=== PATIENT | male | born 1945 | race Caucasian/White ===

== ENCOUNTER 2018-01-20 06:00 | Inpatient (IN) | payer MEDICARE, OTHER ==
--- NOTE | 2018-01-06 16:40 | NUR ---
PATIENT HERE TODAY FOR PREADMISSION APPOINTMENT. PATIENT IS SCHEDULET TO HAVE A RIGHT TOTAL KNEE ARTHROPLASTY ON 01/20/18. PATIENT STATES HE WAS CONTACTED BY PHYSICAL THERAPY HERE IN [place] AND IS NOT GOING TO ATTEND A PREOP PHYSICAL THERAPY APPOINTMENT. HE LIVES IN [place] AND WOULD LIKE TO HAVE PHYSICAL THERAPY AFTER SURGERY AT [facility]. PATIENT STATES HE HAS A WALKER AT HOME BUT SEE'S NO POINT IN USING IT. I DISCUSSED SAFETY WITH HIM AFTER HIS PROCEDURE HE VERBALIZED UNDERSTANDING WHILE STILL TELLING ME HE WOULD USED HIS CRUTCHES DUE TO THE WALKER HURTING HIS BACK. HE STATES HE HAS TWO STAIRS INTO HIS HOME WITH NO HANDRAIL. PATIENT WAS NOT INTERESTING IN TALKING ABOUT HIS TUB OR SHOWER IN HIS HOME OR ITEMS HE MAY NEED FOR AFTER SURGERY. PATIENT STATES HE WOULD LIKE TO GO TO [facility] FOR SWING BED AFTER SURGERY BECAUSE NO ONE IN TOWN WILL CHECK ON HIM AND HE DOES NOT HAVE ANYONE AT HOME WITH HIM. THIS INFORMATION WILL BE SENT TO DR KEYUR MACHADO AND [facility] FOR FURTHER FOLLOW UP.
[~2018-01-20] VITALS: Ht 162.6 cm; Wt 78.5 kg
[~2018-01-20 06:00] MED LIST: ADVIL200 MG; CALCIUM600 MG PO; FISH OIL 1,0001 EAC2 NG; GABAPENTIN400 MG PO; GABAPENTIN600 MG PO; MULTIVITAMINS1 EAC8 PO; ULTRAM50 MG PO; VITAMIN B-121000 MCG PO; VITAMIN C500 M4 PO; ZESTRIL10 MG PO
--- NOTE | 2018-01-20 10:20 | OR ---
[facility] [address] [place], [place] [address] Signed DATE OF OPERATION: 01/20/2018 SURGEON: Juliane Cannon MD PREOPERATIVE DIAGNOSIS: Severe degenerative joint disease, right knee. POSTOPERATIVE DIAGNOSIS: Severe degenerative joint disease, right knee. PROCEDURE PERFORMED: Right total knee arthroplasty with computer navigation. VEGETABLE HARVEST MACHINE OPERATOR: Mirian Gale PA-C. Mirian was present in critical positioning, retraction, and wound closure. ANESTHESIA: Spinal with block. TOURNIQUET TIME: 56 minutes. BLOOD LOSS: Minimal. IMPLANTS: Daniela Triathlon size 5, 11 mm insert, and a 35 mm patella. BRIEF HISTORY: Froylan is a 72-year-old gentleman with severe arthritis in his knee. He had undergone left total knee with success and wished to proceed with the right. Risks, benefits, and alternatives were discussed. DESCRIPTION OF PROCEDURE: Once medical clearance was obtained, he was taken to the operating room. After adequate anesthesia, he was placed on operating table. All downside pressure points were well padded. The right leg was placed in well-padded proximal thigh tourniquet placed on a hip bump. The leg was prepped and draped in a standard sterile fashion. Leg was exsanguinated using an Esmarch bandage. Tourniquet was inflated to 250 mmHg. Standard Electronically Signed By: JULIANE CANNON MD 01/20/18 1020 PATIENT NAME: FROYLAN BAILEY OPERATIVE REPORT DATE OF : 43 REPORT #: [id number] PHYSICIAN: JULIANE CANNON MD PCP: ROCHELLE NELSON MD REPORT IS CONFIDENTIAL AND NOT TO BE RELEASED WITHOUT AUTHORIZATION [facility] [address] [place], [place] [address] Signed anterior approach through a curved incision was taken through skin and subcutaneous tissue. Medial parapatellar arthrotomy was performed. The infrapatellar fat pad was excised and the MCL was elevated at sleeve subperiosteally around the level of the posterior medial corner. The knee was flexed. Anterior horns of menisci were transected as was the ACL. The PCL was found to be intact. Navigation guide was pinned to the distal femur and the femur was registered with a computer. The cutting block was then pinned in neutral alignment and a distal femoral cut was made. All osteophytes were removed. The distal femur was sized to a 5 AP cutting block was pinned in line with the epicondylar axis. The anterior, posterior, and chamfer cuts were made. The attention was then turned to the proximal tibia. Navigation guide was then pinned to the tibia and the tibia was registered with the computer. The cutting block was pinned in neutral alignment and the cut was made with care taken to protect the patellar tendon and MCL. The bone was excised as were any meniscal remnants. The posterior release was performed off the femur and posterior osteophytes were removed. Flexion-extension gaps were sized and found to be symmetric at 11; however, with trialing, the knee was found to be tight both in flexion and extension. I then elected to recut the tibia, removing 2 mm more and then the ligament balance was much better. The patella was cut, sized, and drilled for a 35 mm patella. The distal femur was drilled. Proximal tibia finished using the keel punch and all bony surfaces were pulse lavaged and packed with dry Ray-Jennifer. Cement was mixed and reached proper consistency, displaced all implants all bone surfaces. The tibia was impacted into position first followed by the polyethylene. All excess cement was removed. The femur was impacted into position and again all excess cement was removed. The knee was extended and nicely loaded. The patella was cut, sized, and drilled for 35 patella. The patella was clamped into position and any remaining cement was removed. The cement was allowed to harden. Once it hardened sufficiently, the knee was flexed and the remaining cement was removed using osteotomes. The knee was pulse lavaged at intervals throughout the procedure. A total of 3 L of antibiotic irrigation was used. Periarticular soft tissues were injected with 100 mL ropivacaine and Toradol mixture. The arthrotomy was closed using #2 Stratafix, 0 Stratafix for the subcutaneous tissue, and madonna for the skin. Wound was dressed with Mepilex Ag dressing, ABD, and Chaim wrap. He tolerated the procedure well. All sponge, needle, and instrument counts were correct. Juliane Cannon MD BA/MODL /[id number] Electronically Signed By: JULIANE CANONN MD 01/20/18 1020 PATIENT NAME: FROYLAN BAILEY OPERATIVE REPORT DATE OF : 43 REPORT #: [id number] PHYSICIAN: JULIANE CANNON MD PCP: ROCHELLE NELSON MD REPORT IS CONFIDENTIAL AND NOT TO BE RELEASED WITHOUT AUTHORIZATION [address] [address] Signed Copies: ~ Electronically Signed By: JULIANE CANNON MD 01/20/18 1020 PATIENT NAME: FROYLAN BAILEY OPERATIVE REPORT DATE OF : 43 REPORT #: [id number] PHYSICIAN: JULIANE CANNON MD PCP: ROCHELLE NELSON MD REPORT IS CONFIDENTIAL AND NOT TO BE RELEASED WITHOUT AUTHORIZATION
--- NOTE | 2018-01-20 10:30 | NUR ---
PT TO FLOOR FROM PACU AT 1005. PT ON 2L O2 VIA NC, OXYGEN SATURATION LEVEL 93%. PT DROWSY, BUT ANSWERING QUESTIONS APROPRIATELY. SIPPING BEEF BROTH AND WATER, TOLERATING WELL.
--- NOTE | 2018-01-20 11:07 | NUR ---
PT IN BED, DRINKING WATER, ATE CRACKERS. DENIES NAUSEA. REMAINS ON 2L O2 VIA NC, OXYGEN SATURATION 93%. DENIED PAIN. PERSONAL SUPPLIES AND CALL LIGHT IN REACH. DRESSING TO RIGHT KNEE C/D/I.
--- NOTE | 2018-01-20 12:13 | NUR ---
PT SITTING UP IN BED, EATING SOUP AND ROLL. DENIED NAUSEA. DENIED PAIN. DR. LARSON IN TO SEE PT. PT DENIED PAIN. PERSONAL SUPPLIES AND CALL LIGHT IN REACH.
--- NOTE | 2018-01-20 12:23 | NUR ---
PT'S DERMATOME LEVEL IS NOW AT L1.
--- NOTE | 2018-01-20 13:19 | NUR ---
PT IN BED, HOB ELEVATED, PT NAPPING, BUT ARROUSED TO VERBAL STIMULI. DENIED PAIN. DERMATOME LEVEL AT L3. PERSONAL SUPPLIES AND CALL LIGHT IN REACH.
[2018-01-20] MEDS ORDERED: OMEPRAZOLE20 MG PO (13:36)
--- NOTE | 2018-01-20 13:48 | NUR ---
Medications reconciled with patient's prescription vials and patient interview. Discrepancy discovered, lisinopril dose is 10mg rather than 2.5mg
--- NOTE | 2018-01-20 13:59 | NUR ---
PATIENT RESTING IN BED WITH EYES CLOSED.
--- NOTE | 2018-01-20 14:15 | NUR ---
PT SEEMS TO LIVE ALONE, NO APPARENT RELATIVES CLOSE OR FRIENDS. HE WAS SMILING HE WELCOMED ME INTO HIS RM. PT MENTIONED THAT HE WAS A LITLE SLEEPY, BUT NO PAIN. EXTENDED A BLESSING, WILL FOLLOW NEEDED
--- NOTE | 2018-01-20 14:30 | NUR ---
PT IN BED, DROWSY. RECIEVED SCHEDULED MEDICATIONS. DENIED PAIN. DENIED NEEDS. PERSONAL SUPPLIES AND CALL LIGHT IN REACH.
--- NOTE | 2018-01-20 15:02 | NUR ---
PATIENT AWAKE. STATES HE LIVES ALONE, HAD HIS LEFT KNEE DONE BEFORE SO KNOWS WHAT TO EXPECT. PATIENT STATES HE "SET UP" TO DO SWING BED STAY AT [facility] IN [place] WHERE HE LIVES. HE STATES HE LIVES F[place] OUT OF TOWN AND HAS NO WAY TO GET INTO REHAB. STATES HE HAS A CAT THAT A FRIEND IS WATCHING WHILE HE RECOVERS. PATIENT HAS A WALKER, WHICH HE BROUGHT AND IS IN THE ROOM. PATIENT HAS A TUB/SHOWER AT HOME. STATES HE USED IT AFTER OTHER KNEE AND WORKED "FINE". HE UNDERSTANDS THAT PHYSICAL THERAPY WILL WORK WITH HIM HERE AND THAT I WILL SEND RECORDS TO [facility]. CALLED AND SPOKE WITH HOME ADMITTING FOR [facility] ([phone]) WHO STATES SHE HAS HIM A POTENTIAL SWING BED AND TO SEND RECORDS WE CAN TO FAX ([phone]).
--- NOTE | 2018-01-20 15:21 | NUR ---
FACE SHEET AND CLINICALS FAXED TO [facility] [phone]. FAX CONFIRMATION RECEIVED.
--- NOTE | 2018-01-20 16:19 | NUR ---
PT UP WITH SIDDHARTHA, PHYSICAL THERAPIST USING FWW. PT AMBULATED FROM BED IN ROOM 123 TO WALL ON FAR SIDE OF WINSTON FROM DOORWAY, THEN BACK TO BED. ENCOUARGED PT TO ATTEMPT TO VOID WHEN UP, PT DECLINED. BLADDER SCANNED PT, 491. WILL CONTINUE TO MONITOR, AND PLACE CATHETER IF INDICATED PER ORDERS. PT DENIED PAIN. SPINAL MOSTLY RESOLVED, PT REPORTS SOME DIMINISHED SENSATION TO FEET, BUT IS ABLE TO FEEL TOUCH.
--- NOTE | 2018-01-20 16:23 | NUR ---
PT HAD RIGHT TOTAL KNEE SURGERY TODAY. IS RECIEVING D5NS WITH 20 MEQ KCL AT 125 CC/HR. PT TOLERATING REGULAR DIET. HAS DENIED PAIN SINCE ARRIVAL TO FLOOR. HAS NOT YET VOIDED URINE, BLADDER SCAN AT 1620 SHOWED 491. WILL CONTINUE TO MONITOR. WAS ON 2L O2 VIA NC, TITRATED TO RA AT 1610, CONTINUOUS PULSE OX ON, SATURATION LEVEL AT 93 TO 95%. PT USING INSENTIVE SPIROMETER APROPRIATELY. LUNGS CTA, HRR, BOWEL TONES ACTIVE X 4 QUADRANTS. PT UP WITH PHYSICAL THERAPIST WITH FWW THIS AFTERNOON FOR SHORT DISTANCE AMBULATION. TOLERATED WELL.
--- NOTE | 2018-01-20 17:10 | NUR ---
PATIENT SITTING UP ON EDGE OF BED EATING DINNER. CALL BUTTON IN REACH. FRESH ICE WATER GIVEN.
--- NOTE | 2018-01-20 18:35 | NUR ---
LIMA CATHETER INSERTED WITH MINIMAL RESISTANCE. TOLERATED WELL. ORANGE COLORED URINE PRESENT.
--- NOTE | 2018-01-20 19:31 | NUR ---
IN ROOM FOR REPORT, PT IS AWAKE IN BED, HE DENIES NEEDS AT THIS TIME. CALL LIGHT IS WITHIN REACH.
--- NOTE | 2018-01-20 19:48 | NUR ---
PT IS AWAKE IN BED AT THIS TIME, HE DENIES PAIN AND STATES HE STILL HAS NUMBNESS AND TINGLING IN HIS LOWER EXT, FEET ARE WARM/PINK. RT KNEE HAS CRYO CUFF IN PLACE AND DRESSING IS CDI. AES, SCDS, AND HEEL PROTECTORS ARE IN PLACE. PT DENIES ANY N/V AND IS TOLERATING RA WITH CONTINUOUS PULSEOX IN PLACE. CALL LIGHT IS WITHIN REACH, PT DENIES NEEDS AT THIS TIME.
--- NOTE | 2018-01-20 22:35 | NUR ---
PT IS RESTING WITH EYES CLOSED, RESPIRATIONS EVEN AND NONLABORED ON RA. CALL LIGHT IS WITHIN REACH.
--- NOTE | 2018-01-21 00:25 | NUR ---
PT IS RESTING WITH EYES CLOSED, RESPIRATIONS ARE EVEN AND NONLABORED. CALL LIGHT IS WITHIN REACH.
--- NOTE | 2018-01-21 01:38 | NUR ---
ADMINISTERED TORADOL, PT DENIES NEEDS AT THIS TIME. FRESH WATER AT BEDSIDE AND CALL LIGHT IS WITHIN REACH.
--- NOTE | 2018-01-21 03:45 | NUR ---
PT CONTINUES TO BE FREE OF PAIN BUT HE REPORTS THE SENSATION HAS RETURNED. CRYO, AES AND SCDS ARE IN PLACE AND DRESSING REMAINS CDI. LIMA CATH IS IN PLACE AND DRAINING WITHOUT ISSUE. PT DENIES NEEDS AT THIS TIME. CALL LIGHT IS WTIHIN REACH.
--- NOTE | 2018-01-21 05:49 | NUR ---
PT IS RESTING WITH EYES CLOSED, RESPIRATIONS ARE EVEN AND NONLABORED, CALL LIGHT IS WITHIN REACH.
--- NOTE | 2018-01-21 06:28 | NUR ---
PT SLEPT THROUGH THE NIGHT ON RA. HE HAS SCD'S, AES, AND HEEL PROTECTORS IN PLACE. CRYO CUFF IS ON AND DRESSING IS CDI. PT REPORTS NUMBNESS AND TINGLING HAS SUBSIDED BUT DOES NOT HAVE PAIN YET. PT'S URINE OUTPUT IS LOW THIS AM, WILL NOTIFY MD'S AND WAIT TO DC LIMA UNTIL THEN. D5NS WITH 20 K+ IS INFUSING AT 125.
--- NOTE | 2018-01-21 06:30 | NUR ---
SPOKE WITH DR LARSON ABOUT PT'S LOW URINE OUTPUT, TORB ORDER 1L BOLUS OF NS. HE SAID IT IS OK TO KEEP LIMA AT THIS TIME. WILL NOTIFY DR BAER WELL.
--- NOTE | 2018-01-21 07:33 | NUR ---
SPOKE WITH DR BAER ABOUT PT'S URINE OUTPUT AND 1L NS BOLUS ORDERED BY DR LARSON WELL ORDER TO LEAVE LIMA IN LONGER. NO FURTHER ORDERS GIVEN.
--- NOTE | 2018-01-21 08:01 | NUR ---
BEDSIDE REPORT RECEIVED FROM JESSI MCCOLLUM. WHITE BOARD UPDATED. PATIENT AWAKE FOR REPORT. UO DECREASED. LIMA LEFT IN TO MONITOR UO.
--- NOTE | 2018-01-21 08:35 | NUR ---
PATIENT UP WITH PT ONE PERSON ASSIST WITH GATE BELT AND FWW. LINENS CHANGED. ROOM PICKED UP. PATIENT RATES HIS PAIN A 0 OUT OF 10. NO OTHER NEEDS AT THIS TIME.
--- NOTE | 2018-01-21 10:40 | NUR ---
URINE OUTPUT LOW REPORTED BY STUDENT NURSE. HOSPITALIST NOTIFIED. NS BOLUS INFUSING NOW. OCCUPATIONAL THERAPIST WORKED WITH PATIENT ON GROOMING CARES BEFORE BOLUS BEGAN INFUSING.
--- NOTE | 2018-01-21 10:40 | NUR ---
PATIENT SITTING UP IN CHAIR. STUDENT NURSE IN ROOM TAKING PATIENTS BP. NO OTHER NEEDS AT THIS TIME.
--- NOTE | 2018-01-21 12:30 | NUR ---
PATIENT SITTING UP IN CHAIR. PATIENT STATES THAT A MAN CAME IN HIS ROOM YESTERDAY AND TOOK THE "OLD ROTARY PHONE" THAT WAS SITTING ON HIS COUNTER YESTERDAY. CALL BUTTON IN REACH.
--- NOTE | 2018-01-21 12:34 | NUR ---
staff reporting to this RN that patient having hallucinations about a rotary phone in the room. attempts to reorient the patient fail. fall/safety procedures in place.
--- NOTE | 2018-01-21 14:22 | NUR ---
PT SEEMS TO BE HAVING HALLUCINATIONS REGARDING A ROTARY PHONE HE SAID WAS ON THE TABLE NEXT TO HIS BED. A LADY FRIEND IS SUPPOSED TO BE CALLING HIM ON THE PHONE. I SHOWED HIM THE HOUSE PHONE-HE SAID "NO" IT IS A ROTARY PHONE. HE WAS FIXATED ON THIS PHONE ISSUE AND WAS NOT WANTING TO BE INVOLVED IN ANYTHING ELSE. I TOLD HIM I WOULD LET HIS RN JUWAN KNOW, WHICH I DID. SHE WAS CONCERNED ABOUT THIS AND SAID SHE WOULD FOLLOW UP.
--- NOTE | 2018-01-21 14:50 | NUR ---
PT FINISHED PHYSICAL THERAPY. CHANGED INTO STREET CLOTHES. IVF INFUSING INTO LEFT HAND. NEW ICE IN CRYOCUFF PROVIDED. URINE BECOMING ENTERTAINER & COMIC AND OUTPUT INCREASING.
--- NOTE | 2018-01-21 16:46 | NUR ---
PATIENT RESTING IN BED WATCHING TV. FRESH ICE WATER GIVEN. CALL BUTTON IN REACH. NO OTHER NEEDS AT THIS TIME.
--- NOTE | 2018-01-21 17:30 | NUR ---
RECEIVED 2L TOTAL OF NS FOR LOW UO TODAY. UO IMPROVED THIS AFTERNOON/EVENING. LIMA REMOVED AT 1800. BM 01/19 LAST. TORADOL/TYLENOL SCHEDULED. NO PAIN TODAY. WORKED WITH PT/OT TODAY. IVF DECREASED TO 75 FOR ONE LAST IVF BAG. SALINE LOCK WHEN BAG EMPTY.
--- NOTE | 2018-01-21 18:04 | NUR ---
PATIENT SITTING UP IN BED. DISCUSSED WITH PATIENT PROCESS OF PULLING OUT HIS LIMA. PATIENT REQUESTED A MALE NURSE TO PULL OUT LIMA. CRYO MACHINE FILLED WITH ICE. LIMA BAG DRAINED. CALL LIGHT IN REACH. RN IN ROOM. NO OTHER NEEDS AT THIS TIME.
--- NOTE | 2018-01-21 18:08 | NUR ---
DISCONTINUED LIMA CATHETER. TOLERATED WELL.
--- NOTE | 2018-01-21 19:08 | NUR ---
IN ROOM FOR REPORT, PT IS RESTING WITH EYES CLOSED AT THIS TIME. RESPIRATIONS ARE EVEN AND NONLABORED. CALL LIGHT IS WITHIN REACH.
--- NOTE | 2018-01-21 21:40 | NUR ---
WOKE PT TO GIVE MEDICATIONS AND COMPLETE ASSESSMENT. HE WAS IN A DEEP SLEEP AND CONFUSED UPON WAKING. PT WANTED TO GET UP AND HELPED HIM MOVE TO CHAIR, THEN PT DECIDED HE WANTED TO WORK ON HIS P.T. EXERCISES AND WANTED TO GO BACK TO BED. ALSO HELPED HIM TO THE RESTROOM. HE IS BACK IN BE AND REORIENTED EASILY. HE STATES HE IS STARTING TO FEEL A TIGHNESS IN HIS RT THIGH, BUT DENIES NEED FOR MEDICATIONS AT THIS TIME. CALL LIGHT IS WITHIN REACH AND PT IS BACK IN BED.
--- NOTE | 2018-01-22 00:01 | NUR ---
PT IS AWAKE IN BED AND HAVING TROUBLE SLEEPING, HIS PAIN IS 5/10 AT THIS TIME. 2 OXYCODONE WERE GIVEN PT STATES OXYCODONE DOES NOT HELP HIM WITH PAIN. ADVISED PT WE SHOULD GIVE IT A TRY AND IF IT DOES NOT WORK WE CAN CONTACT THE
--- NOTE | 2018-01-22 01:56 | NUR ---
PATIENT USED THE CALL LIGHT WANTS TO USE THE URINAL. 1 PA WITH WALKER, STANDING. PATIENT IS BACK IN BED. CRYO, SCD ARE BACK ON. CALL LIGHT WITHIN REACH. CRYO CUFF AND ICE WATER REFILLED.
--- NOTE | 2018-01-22 02:06 | NUR ---
PT IS AWAKE IN BED, BUT REPORTS PAIN IS ONLY A 1 AT THIS TIME. HE DENIES FURTHER NEEDS AT THIS TIME. CALL LIGHT IS WITHIN REACH.
--- NOTE | 2018-01-22 04:01 | NUR ---
PT IS RESTING WITH EYES CLOSED, RESPIRATIONS ARE EVEN AND NONLABORED. CALL LIGHT IS WITHIN REACH.
--- NOTE | 2018-01-22 04:34 | NUR ---
PT REQUESTED TO MOVE TO THE CHAIR, HE STATES HE IS HAVING TROUBLE SLEEPING AND "WAS RESTING HIS EYES". DISCUSSED TAKING PAIN MEDICATION THIS MORNING BEFORE HE NEEDS TO GET UP WITH P.T. WHEN WALKING WITH THE WALKER PT IS TRYING TO AVOID PUTTING WEIGHT ON HIS RT LEG AND MAKES GRUNTING NOISES, BUT STATES HE IS NOT HAVING MUCH PAIN. CALL LIGHT IS WITHIN REACH.
--- NOTE | 2018-01-22 06:11 | NUR ---
PT USED COMMODE, HE IS BACK IN CHAIR WITH CALL LIGHT IN REACH. IV IS SL FINAL BAG IS COMPLETE. LAB IS IN ROOM AT THIS TIME.
--- NOTE | 2018-01-22 07:28 | NUR ---
BEDSIDE REPORT RECEIVED FROM JESSI MCCOLLUM. WHITE BOARD UPDATED. PATIENT AWAKE SITTING UP IN RECLINER WITH LEGS ELEVATED. REPORTS 2/10 PAIN ON INSIDE OF RIGHT KNEE. "ANNOYING ACHE". SALINE LOCKED IN LH. SCDs IN PLACE.
--- NOTE | 2018-01-22 07:50 | NUR ---
PATIENT SITTING UP IN CHAIR. WARM BLANKETS GIVEN. CALL BUTTON IN REACH. NO OTHER NEEDS AT THIS TIME.
--- NOTE | 2018-01-22 08:01 | NUR ---
PT ASSISTED UP TO BSC TO URINATE AND THEN BACK TO RECLINER. SCDs AND CRYOCUFF IN PLACE. PT EATING BREAKFAST NOW. SEEMS CONFUSED AT TIMES.
--- NOTE | 2018-01-22 09:00 | NUR ---
PT SET UP TO BRUSH TEETH IN RECLINER. DR BAER REMOVED DRESSING ON RIGHT KNEE. OPEN TO AIR NOW. WEEPING SLIGHTLY. WILL RECOVER WITH MEPILEX AND HAROON WRAP AT 1000. EDUCATED PATIENT TO NOT TOUCH INCISION TO AVOID INTRODUCING BACTERIA.
--- NOTE | 2018-01-22 09:25 | NUR ---
PATIENT WORKING WITH PT AMBULATING IN HALLWAY.
--- NOTE | 2018-01-22 09:51 | NUR ---
PATIENT SITTING UP IN CHAIR. CALL BUTTON IN REACH. PATIENT RATES PAIN A 2 OUT OF 10 WHILE SITTING. FRESH ICE WATER GIVEN. NO OTHER NEEDS AT THIS TIME.
--- NOTE | 2018-01-22 13:27 | NUR ---
THIS ELECTRICAL AND INSTRUMENTATION MANAGER AND CESAR MILLER ASSISTED PATIENT UP TO BATHROOM WITH FWW. PATIENT GAVE SELF A SPONGE BATH.PATIENT CHANGED INTO CLEAN CLOTHES FROM HOME. PATIENT UP TO SINK TO COMB HAIR. PATIENT UNTSEADY WHILE UP. PATIENT BACK TO CHAIR WIHT 2 PERSON ASSIST WITH GAIT BELT AND FWW. PATIENT'S CRYO CUFF ON RIGHT KNEE. CRYO CUFF JUST FILLED WITH FRESH ICE. PATIENT CALL LIGHT IN REACH, FRESH ICE WATER ON BEDSIDE TABLE. WARM BLANKET GIVEN. LINEN CHANGED.NO OTHER NEEDS AT THIS TIME. GREGORY ASSEMBLY TECHNICIAN IN ROOM TO VISIT PATIENT.
--- NOTE | 2018-01-22 13:30 | NUR ---
PT SITTING IN CHAIR, NIBBLING ON SOMETHING AND WORKING ON A CROSSWORD PUZZLE. HE MENTIONED THAT HE IS GETTING "BOOTED OUT OF HERE", ACCORDING TO PT. I FOUND THIS TO NOT BE THE CASE AT ALL FROM HIS RN. HE SEEMED VERY CONTENT WITH HIS CROSSSWORD. WILL FOLLOW NEEDED
--- NOTE | 2018-01-22 14:14 | NUR ---
patient c/o pain 7/10 "spasms" in leg. gabapentin, toradol, and tylenol given. sitting up in chair.
--- NOTE | 2018-01-22 15:00 | NUR ---
RECIEVED A PHONE CALL FROM FAHAD AT [facility] WITH THE AUTHORIZATION # [id number] STARTING ON 01/23/18. ATTEMPTED TO CALL HOME AT [facility] PHONE # [phone] NO ANSWER MESSAGE LEFT FOR HER TO CALL BACK.
--- NOTE | 2018-01-22 17:02 | NUR ---
PATIENT NEEDY THROUGHOUT DAY. MULTIPLE REQUESTS/COMPLAINTS. CHANGED IV TO RAC FOR COMFORT. 1PA WITH FWW. PAIN INCREASED TODAY. GABAPENTIN DOSE INCREASED TO 900MG. OXYCODONE GIVEN X1. DIDNT SEEM TO HELP PAIN MUCH. WORKED WITH PHYSICAL THERAPY. URINATING WELL.
--- NOTE | 2018-01-22 18:02 | NUR ---
PT ASSISTED TO BATHROOM. PT URINATED ON BOXER BRIEFS, CHANGED, SOCKS CHANGED. PT ASSISTED BACK TO CHAIR. PT REQUESTING FLOSS, PROVIDED. CRYOCUFF IN PLACE. ARIANA HOSE IN PLACE. PT DENIES OTHER NEEDS AT THIS TIME. CALL LIGHT WITHIN REACH.
--- NOTE | 2018-01-22 18:08 | NUR ---
PATIENT SITTING UP IN BEDSIDE RECLINER FLOSSING HIS TEETH. VITALS TAKEN. CALL LIGHT IN REACH, FRESH ICEWATER AT BEDSIDE TABLE. NO OTHER NEEDS AT THIS TIME.
--- NOTE | 2018-01-22 19:57 | NUR ---
RECEIVED REPORT FROM DAY SHIFT RN. PATIENT IS RESTING IN RECLIER. PATIENT HAS TEDHOSE IN PLACE. PATIENT HAS CRYO APPLIED TO RIGHT KNEE. DRESSING IS C/D/I. PATIENT DENIES ANY PAIN AT THIS TIME. PATIENT DENIES ANY NEED FOR PAIN MEDICATION. NO NEEDS NOTED. CALL LIGHT IN REACH. AAOX3.
--- NOTE | 2018-01-22 21:30 | NUR ---
PATIENT ASSESMENT COMPLETED. PATIENTS EVENING MEDICATIONS GIVEN PER ORDER. PATIENT RATES PAIN AT A 3/10. PATIENT GIVEN PRN PAIN MEDICATION PER ORDER. PATIENT IS REQUESTING TO PLACE PILLOW UNDER HIS OPERATIVE LEG. PATIENT EDUCATED ON THE IMPORTANCE OF NOT PLACING A PILLOW UNDER OPERATIVE KNEE. PATIENT EXPRESSES IRRITATION WITH NOT BEING ALLOWED TO HAVE PILLOW UNDER OPERATIVE KNEE. PATIENT HOWEVER VERBALIZES UNDERSTANDING. PATIENT IS ON RA. PATIENT IS ON A REGULAR DIET, NO NAUSEA NOTED. PATIENT PROVIDED SNACK TO TAKE WITH PO MEDICATIONS. PATIENT HAS CRYO APPLIED TO RIGHT KNEE, AND CRYO HAS SUFFICIENT ICE. PATIENT HAS ARIANA HOSE, AND SCDS ON BLE. PATIENT IS SL AND IV FLUSHES WELL. PATIENTS DRESSING IS C/D/I. PATIENT HAS SCOPE PATCH BEHIND RIGHT EAR. PATIENT IS AAOX3. PATIENT IS RESTING IN RECLINER AND DENIES ANY FURTHER NEEDS AT THIS TIME. CALL LIGHT IN REACH.
--- NOTE | 2018-01-22 22:15 | NUR ---
PATIENT ASSISTED TO THE RESTROOM AT A 1PA W/FWW. PATIENT STRUGGLES WITH COORDINATION. PATIENT WAS ABLE TO VOID. PATIENT WAS ALSO ABLE TO STAND AT SINK AND BRUSH HIS TEETH. PATIENT IS NOW IN BED RESTING. PATIENT HAS SCDS, TEDHOSE, HEEL PROTECTORS, AND CRYO IN PLACE. PATIENTS CRYO HAS SUFFICIENT ICE. PATIENT RATES PAIN AT A 2/10, AND DENIES THE NEED FOR PAIN MEDICATION AT THIS TIME. CALL LIGHT IN REACH. NO FURTHER NEEDS NOTED. AAOX3.
--- NOTE | 2018-01-22 23:48 | NUR ---
PATIENT IS RESTING IN BED WITH EYES CLOSED. BREATHING IS EVEN AND UNLABORED, RR 17. PATIENT IS WEARING TEDHOSE, SCDS, AND HEEL PROTECTORS. CRYO APPLIED TO RIGHT KNEE. CALL LIGHT IN REACH. BED ALARM ON FOR SAFETY.
--- NOTE | 2018-01-23 02:14 | NUR ---
PATIENT GIVEN 0200 SCHEDULED MEDICATIONS PER ORDER. PATIENT RATES PAIN AT A 0/10. PATIENT DENIES THE NEED FOR PAIN MEDICATION AT THIS TIME. NO NAUSEA NOTED. PATIENTS HAS CRYO, TEDHOSE, HEEL PROTECTORS, AND SCDS IN USE. CRYO HAS SUFFICIENT ICE AT THIS TIME. NO FURTHER NEEDS NOTED. CALL LIGHT IN REACH.
--- NOTE | 2018-01-23 03:38 | NUR ---
PATIENT CALLED TO REQUEST TO USE THE RESTROOM. PATIENT ASSISTED TO THE RESTROOM A 1PA W/FWW. PATIENT HAS DIFFICULTY AT TIMES WITH COORDINATION WITH THE WALKER. PATIENT WAS ABLE TO VOID. PATIENT IS BACK IN BED RESTING. PATIENT HAS TEDHOSE, SCDS, AND HEEL PROTECTORS IN PLACE ON BLE. CRYO REFILLED WITH ICE. PATIENT RATES PAIN AT A 0/10. DENIES THE NEED FOR PAIN MEDICATION. PATIENT DENIES ANY FURTHER NEEDS. PATIENTS BED ALARM IS ON FOR SAFETY. CALL LIGHT IN REACH. AAOX3
--- NOTE | 2018-01-23 05:10 | NUR ---
PATIENT RESTED WELL THROUGHOUT THE SHIFT. PATIENT IS ON A REGULAR DIET, TOLERATING WELL, NO NAUSEA NOTED. JOHANNAMELISSA IS A 1PA W/FWW. CASE IS WORKING WITH PT/OT. PATIENT HAS CRYO APPLIED TO [facility]. PATIENT HAS HEEL PROTECTORS, SCDS, AND TEDHOSE ON BOTH LOWER EXT. PATEINT IS SL AND IV FLUSHES WELL. PATIENT IS ON RA. PATIENTS DRESSING ON RIGHT KNEE IS C/D/I, NO SHADOWING NOTED. PATEINT HAS SCOPE PATCH BEHIND RIGHT HEAR. PATIENT RECEIVED PRN PAIN MEDICATION X1. PATIENT GIVEN SNACKS BEFORE PO MEDICATION ADMINISTERED. PATIENT IS AAOX3 AND USES CALL LIGHT APPROPRIATELY.
--- NOTE | 2018-01-23 06:40 | NUR ---
PATIENT ASSITED TO STAND AT THE BEDSIDE AND USE THE URINAL. PATIENT IS A 1PA W/FWW. PATIENT TOLERATED ACTIVITY WELL. PATIENT WAS ABLE TO VOID. PATIENT RATES PAIN AT A 5/10 IN HIS BACK AND A 3/10 IN HIS RIGHT KNEE. PATIENT GIVEN PRN PAIN MEDICATION PER ORDER. PATIENT IS BACK IN BED RESTING WITH TEDHOSE, SCDS, HEEL PROTECTORS AND CRYO IN PLACE. CRYO REFILLED WITH ICE. NO FURTHER NEEDS NOTED CALL LIGHT IN REACH. AAOX3.
[2018-01-23] MEDS ORDERED: OXYCODONE HCL5 MG PO (07:39)
--- NOTE | 2018-01-23 08:15 | NUR ---
PT RESTIGN IN BED. PT ALERT/ORIENTED. PT ON ROOM AIR, LUNG SOUNDS CLEAR, DENIES SOB. PT BOWEL TONES ACTIVE, DENIES NAUSEA, BOWEL TONES ACTIVE. CMS INTACT, WITHOUR EDEMA, DRESSING TO RIGHT KNEE HAROON AND MEPILEX, INTACT, WITHOUT DRAINAGE. PT RATING PAIN 0/10 AT THIS TIME, GIVEN SCHEDULED TORADOL. SCDS, ARIANA OQUENDO, CRYOCUFF IN PLACE. PT DENIES OTHER NEEDS AT THIS TIME, DISCUSSED PLAN OF CARE FOR THE DAY.
--- NOTE | 2018-01-23 09:00 | NUR ---
CALLED AND LEFT MESSAGE FOR HOME FROM [facility] TO RETURN CALL PT READY FOR DC TO THEIR FACILITY FOR SWING BED.
[2018-01-23] MEDS ORDERED: CALCIUM500 MG PO (09:54)
[2018-01-23] MEDS ORDERED: COLACE100 MG PO (09:54)
[2018-01-23] MEDS ORDERED: EXCEDRIN EXTRA1 EAC1 PO (09:56)
--- NOTE | 2018-01-23 10:07 | NUR ---
DRESSING CHANGED TO RIGHT KNEE INCISION, HAROON REPLACED. PT RESTING IN BED, COMPLETED PHYSICAL THERAPY. PT DENIES OTHER NEEDS AT THIS TIME.
--- NOTE | 2018-01-23 10:13 | NUR ---
AFTER VITALS WERE DONE PATIENT HAD TO GO TO THE BATHROOM. BED ALARM IS PHOTOGRAPHER MOTION PICTURE LIGHT CLOSE.
--- NOTE | 2018-01-23 11:20 | NUR ---
TALKED TO HOME WHO GAVE ME A #FOR ABEL SHE IS OUT OF TOWN NOW. CALLED [facility] AT [phone]. SHE ASKED ME TO FAX SOME UPDATED CHART NOTES TO HER AND THAT THEY DO NOT HAVE ANY BEDS AVAILABLE UNTIL TOMORROW. I SEND UPDATED CHART NOTES, AND RECIEVED A FAX CONFIRMATION. ALSO NOTIFIED DR BAER, STAFF AND DR LARSON OF THE NEED FOR THE PT TO REMAIN UNTIL TOMORROW.
--- NOTE | 2018-01-23 11:25 | NUR ---
PATIENT WAS UP WALKING WITH PHYSICAL THERAPIST. TOLERATED WELL. PATIENT EDUCATED AGAIN ABOUTR NOT TO PUT PILLOW UNDER HIS RIGHT KNEE. PAIN IS TOLERABLE AT THIS TIME PER PATIENT. WILL CONTINUE TO MONITOR.
--- NOTE | 2018-01-23 13:02 | NUR ---
I STOOD IN THE SHOWER IN CASE HE NEEDED HELP. HE IS SITTING UP IN HIS CHAIR. PUT ON HIS ARIANA HOSE. CHANGED BED LINENS.
--- NOTE | 2018-01-23 13:55 | NUR ---
PT IS SITTING UP IN CHAIR WITH FEET ELEVATED AND CALL LIGHT IN REACH. PT ASKED FOR A HEAT PAD FOR HIS BACK.
--- NOTE | 2018-01-23 14:07 | NUR ---
CHECKED ON PT, SITTING IN CHAIR-ALERT AND ORIENTED. PT MENTIONED THAT HE CAN'T GO TO [facility] UNTIL TOMORROW. HE MENTIONED HE IS TRYING TO CONTACT HIS RIDE. WILL FOLLOW NEEDED
--- NOTE | 2018-01-23 14:09 | NUR ---
PATIENT WAS ASSISTED TO BATHROOM TO VOID. THEN BACK TO THE CHAIR. PATIENT REPORTED PAIN ON THE RIGHT KNEE AFTER AMBULATING. SCHEDULED PAIN MED ADMINISTERED. RESTING ON THE CHAIR AT THIS TIME. CALL LIGHT IN REACH. CHAIR ALARM ON. WILL CONTINUE TO MONITOR.
--- NOTE | 2018-01-23 15:25 | NUR ---
PATIENT WAS UP WALKING WITH PHYSICAL THERAPIST. TOLERATED WELL. PATIENT WAS MEDICATED FOR PAIN. HAROON WRAP REMOVED BEFORE AMBULATION PER PATIENT REQUEST. SMALL BLISTER NOTED AT THE LATERAL SIDE OF THE RIGHT KNEE. WILL CONTINUE TO MONITOR. PATIENT RESTING IN THE CHAIR AT THIS TIME WATCHING TV.
--- NOTE | 2018-01-23 16:26 | NUR ---
PATIENT RESTING IN CHAIR, APPEARS TO BE SLEEPING. NO APPARENT DISTRESS NOTED. WILL CONTINUE TO MONITOR.
--- NOTE | 2018-01-23 18:03 | NUR ---
PT IS SITTING UP IN CHAIR WITH CALL LIGHT IN REACH. PT ASKED FOR MORE ICE WATER.
--- NOTE | 2018-01-23 18:29 | NUR ---
PATIENT HAD AN UNEVENTFUL DAY. HAD PHYSICAL THERAPY TWICE TODAY AND TOLERATED WELL. PAIN CONTROL WITH SCHEDULED TORADOL, TYLENOL AND OXY. SALINE LOCKED. MELILEX ON THE RIGHT KNEE D/C/I. SMALL BLISTER ON THE LATETAL SIDE OF THE RIGHT KNEE. CRYO CUFF, ARIANA OQUENDO AND SCD ON. D/C TO TOMORROW.
--- NOTE | 2018-01-23 19:20 | NUR ---
REPORT RECIEVED FROM DAY SHIFT RN. PATIENT SITTING UP IN RECLINER. LEGS UP, CRYO, AND TEDHOSE IN PLACE. DRESSING C/D/I. PATIENTS IV SL. PATIENT DECLINES ANY PAIN AT THIS TIME. PATIENT HAS WHAT APPEARS TO BE A BLISTER ON THE OUTSIDE OF HIS LEFT KNEE, WILL CONTINUE TO MONITOR. AAOX3. CALL LIGHT WITHIN REACH.
--- NOTE | 2018-01-23 20:25 | NUR ---
PATIENT ASSISTED TO RESTROOM WITH SBA AND FWW. PATIENT ABLE TO VOID. PATIENT ASSISTED INTO BED. PATIENT BLOOD PRESSURE HIGH AFTER TRANSFER, WILL CONINTINUE TO MONITOR. PATIENTS DRESSING C/D/I, SCANT SHADOWING PRESENT. BLISTERS NOTICED ON THE OUTSIDE OF THE RIGHT KNEE. PATIENTS IV SL PER ORDER. EVENING MEDICATIONS GIVEN PER ORDER. CRYO REFILLED WITH ICE. SCDS, TEDHOSE, HEEL PROTECTORS IN PLACE ON BLE. CRYO PLACED ON PATIENTS RIGHT KNEE. PATIENTS IV DRESSING CHANGED. SNACKS PROVIDED WITH PO MEDICATIONS. ICE WATER REFILLED. PATIENT STATES PAIN 0/10. PATIENT DENIES ANY OTHER NEEDS AT THIS TIME. CALL LIGHT WITHIN REACH. AAOX3.
--- NOTE | 2018-01-23 20:35 | NUR ---
PATIENTS BLOOD PRESSURE REASSESSED AFTER SCHEDULED PAIN MEDICATION AND IS RESTING COMFORTABLY. PATIENTS BLOOD PRESSURE IS WNL. WILL CONTINUE TO MONITOR. PATIENT RATES PAIN 0/10. SCDS, TEDHOSE, HEEL PROTECTORS IN PLACE BLE. CRYO IN PLACE ON RIGHT KNEE. PATIENT DENIES ANY OTHER NEEDS AT THIS TIME. CALL LIGHT WITHIN REACH. AAOX3.
--- NOTE | 2018-01-23 20:45 | NUR ---
ROUNDED CHARGE. PATIENT IS IN BED RESTING WITH CRYO, SCDS, AND TEDHOSE IN PLACE. CALL LIGHT IN REACH.
--- NOTE | 2018-01-23 21:20 | NUR ---
PATIENT RESTING IN BED WATCHING TV. PATIENT STATES PAIN 2/10. PATIENT GIVEN TYLENOL PER ORDER. SCDS, TEDHOSE, AND HEEL PROTECTORS IN PLACE. CRYO IN PLACE ON RIGHT KNEE. PATIENT HELPED WITH REPOSITIONING. PATIENT DENIES ANY OTHER NEEDS AT THIS TIME. CALL LIGHT WITHIN REACH.
--- NOTE | 2018-01-23 22:50 | NUR ---
PATIENT RESTING IN BED. PATIENT STATES PAIN 5/10. PRN OXYCODONE GIVEN PER ORDER. SCDS, TEDHOSE, AND HEEL PROTECTORS IN PLACE. CRYO IN PLACE ON RIGHT KNEE. AAOX3. CALL LIGHT WITHIN REACH. PATIENT DENIES ANY OTHER NEEDS AT THIS TIME. PATIENT ASSISTED WITH TURNING TV AND LIGHTS OFF IN ROOM. CRYO HAS SUFFICIENT ICE.
--- NOTE | 2018-01-24 00:59 | NUR ---
PATIENT RESTING WITH EYES CLOSED. RR 16, SNORING HEARD. SCDS, TEDHOSE, AND HEEL PROTECTORS IN PLACE. CRYO IN PLACE ON RIGHT KNEE, ICE SUFFICIENT. CALL LIGHT WITHIN REACH.
--- NOTE | 2018-01-24 02:20 | NUR ---
PATIENT RESTING IN BED. PATIENT STATES PAIN 0/10 WHILE IN BED AND 4/10 PAIN WILL UP TO THE RESTROOM. TORADOL GIVEN PER ORDER. PATIENT ASSESSMENT COMPLETED. PATIENT GIVEN FRESH WATER. PATIENTS IV IS SL AND FLUSHES WELL. PATIENT REPOSITIONED IN BED. SCDS, TEDHOSE, AND HEEL PROTECTORS IN PLACE. CYRO PLACED ON RIGHT KNEE, ICE REFILLED AND IS SUFFICIENT. PATIENT DENIES ANY OTHER NEEDS. CALL LIGHT WITHIN REACH. AAOX3.
--- NOTE | 2018-01-24 04:23 | NUR ---
PATIENT REQUESTED PAIN MEDICATION. PATIENT STATES PAIN 10/16. PRN OXYCODONE GIVEN PER PATIENT REQUEST. PATIENT REQUESTS HEEL PROTECTORS OFF AT THIS TIME DUE TO HIS FEET BEING TOO WARM. PATIENT EDUCATED ABOUT HEEL PROTECTORS, WILL CONTINUE TO ENCOURAGE. SCDS AND TEDHOSE IN PLACE. CRYO IN PLACE ON RIGHT KNEE, ICE SUFFICIENT. FRESH ICE WATER GIVEN. PATIENT DENIES ANY OTHER NEEDS. CALL LIGHT WITHIN REACH. AAOX3.
--- NOTE | 2018-01-24 04:50 | NUR ---
PATIENT REQUEST ASSISTANCE WITH PT EXERCISES. PATIENT STATES PAIN 0/10 WITH SORENESS. PATIENT GIVEN FRESH ICE WATER. CRYO IN PLACE ON RIGHT KNEE, ICE REFILLED AND IS SUFFICIENT. TEDHOSE AND SCDS IN PLACE. PATIENT REQUESTS HEEL PROTECTORS OFF AT THIS TIME, WILL CONTINUE TO ENCOURAGE. PATIENT AAOX3. PATIENT DENIES ANY OTHER NEEDS. CALL LIGHT WITHIN REACH.
--- NOTE | 2018-01-24 05:35 | NUR ---
PATIENT RESTED THROUGH OUT SHIFT. PATIENT AAOX3 AND USES CALL LIGHT APPROPRIATLY. PATIENT IS ON A REGULAR DIET. PATIENT IS ON RA. PATIENTS IV IS SL AND FLUSHES WELL. PATIENT DRESSING ON RIGHT KNEE IS C/D/I, SCANT SHADOWING NOTED. PATIENT IS A 1PA WITH FWW. PATIENT IS WORKING WITH OT/PT. PATIENT RECIEVED PRN PAIN MEDICATION. PATIENT GIVEN SNACKS BEFORE PO MEDICATIONS. PATIENT HAS A CRYO IN PLACE ON RIGHT KNEE. TEDHOSE, SCDS, AND HEEL PROTECTORS ON BLE.
--- NOTE | 2018-01-24 06:01 | NUR ---
PATIENT GIVEN 0600 MEDICATIONS PER ORDER. PATIENT RATES PAIN 0/10. CRYO IN PLACE ON RIGHT KNEE, ICE SUFFICIENT. TEDHOSE, SCDS, AND HEEL PROTECTORS IN PLACE. LAB IN ROOM. PATIENT AAOX3. PATIENT DENIES ANY OTHER NEEDS AT THIS TIME. PATIENT ASSISTED WITH TURNING LIGHTS OFF. CALL LIGHT WITHIN REACH.
--- NOTE | 2018-01-24 07:37 | DS ---
[facility] [address], [place] [address] Signed ADMISSION DATE: 01/20/2018 DISCHARGE DATE: 01/23/2018 ADMISSION DIAGNOSIS: Degenerative joint disease, right knee. DISCHARGE DIAGNOSIS: Degenerative joint disease, right knee. PROCEDURE PERFORMED: Right total knee arthroplasty. BRIEF HISTORY: Froylan is a 72-year-old gentleman from [place], who has had longstanding arthritis we have treated for many years. Nonoperative treatment failed to control his symptoms and he wished to proceed with operative. DESCRIPTION OF PROCEDURE: Once consent was obtained and medical clearance was obtained, he was taken to the operating room, underwent the above-named procedure. He tolerated this well and was taken to the recovery room and subsequently to orthopedic floor. He was initially placed on oxycodone and gabapentin for pain control. He is also placed on acetaminophen and ketorolac. He did well, although he did complain of little bit greater pain on postoperative day #2. The gabapentin was increased to 900 mg p.o. t.i.d. He did well after that and was able to ambulate, but did not have a good safety profile and required significant assist. He wishes to go to swing bed status back in [place] and has been accepted for transfer. He will continue inpatient physical therapy up there. He will continue current medications as well. He will follow up with me in 7 to 10 days or sooner should he think he needs. Juliane Cannon MD BA/ELISEO /[id number] Electronically Signed By: JULIANE CANNON MD 01/24/18 0737 PATIENT NAME: FROYLAN BAILEY DISCHARGE SUMMARY DATE OF : 43 REPORT #: [id number] PHYSICIAN: JULIANE CANNON MD PCP: ROCHELLE NELSON MD REPORT IS CONFIDENTIAL AND NOT TO BE RELEASED WITHOUT AUTHORIZATION [facility] [address] [place], [place] [address] Signed Copies: ~ Electronically Signed By: JULIANE CANNON MD 01/24/18 0737 PATIENT NAME: FROYLAN BAILEY DISCHARGE SUMMARY DATE OF : 43 REPORT #: [id number] PHYSICIAN: JULIANE CANNON MD PCP: ROCHELLE NELSON MD REPORT IS CONFIDENTIAL AND NOT TO BE RELEASED WITHOUT AUTHORIZATION
--- NOTE | 2018-01-24 07:49 | NUR ---
SHIFT REPORT RECEIVED FROM NEHAL, PATIENT ASSISTED TO BATHROOM THEN BACK TO THE CHAIR WITH NO DIFFICULTY. DR BAER WAS IN TO SEE AND REEVALUATE PATIENT. PATIENT REPORT PAIN ON THE RIGHT KNEE MORE SO ON THE ANTERIOR PART. BLISTER STILL PRESENT AND MD IS AWARE OF IT. PATIENT RESTING IN THE CHAIR AT THIS TIME EATING BREAKFAST. FRESH WATER GIVEN. CALL LIGHT IN REACH. BED MADE AND ROOM TIDY.
--- NOTE | 2018-01-24 09:00 | NUR ---
STAND BY ASSIST, FROM CHAIR TO BED USING FWW. CRYO FILLED, ROLLED TOWEL UNDER ANKLE. CALL LIGHT IN REACH.
--- NOTE | 2018-01-24 09:33 | NUR ---
FAXED ORDERS TO [facility] [phone] PER ABEL, SHE STATES HE CAN COME ANYTIME HIS RIDE IS HERE.
--- NOTE | 2018-01-24 10:35 | NUR ---
PT AND NURSE INFORM ME THAT PT STATES HIS RIDE CAN'T GET HER UNTIL AFTER SHE GETS OFF WORK AT 5 AND HE WON'T BE ABLE TO BOY'S ADVISER HIS MEDS IN [place]. TALKED TO [facility] HE STATES HE IS NOT EVEN SURE IF THERE IS A PERSON IN HIS LIFE CALLED KENDY.
--- NOTE | 2018-01-24 11:00 | NUR ---
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 TALKED WITH HANG CONNOLLY PRIOR TO THIS AND SHE AUTH'D THIS TRANSPORT THE PT CAN'T AFFORD IT ON HIS OWN.
--- NOTE | 2018-01-24 11:35 | NUR ---
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 PT INFORMED AND VERY HAPPY WITH THIS.
--- NOTE | 2018-01-24 14:00 | NUR ---
[facility] WILL BE HERE IN 15 TO 20 MINUTES.
== END 2018-01-24 14:10 | disposition home or self-care (01) | DRG 470 ==
LOC: DS 06:00 → MS 09:00 → DS 09:00 → EDSTATUS 09:00 → MS 10:05 → DS 10:05 → MS 10:06 → DS 10:15 → MS 01-24 14:10
PROVIDERS: ADMIT Specialist
PROC: 8E0YXBZ Computer Assisted Procedure of Lower Extremity (ICD-10-PCS; 2018-01-20)
PROC: 3E0T3BZ Introduction of Anesthetic Agent into Peripheral Nerves and Plexi, Percutaneous Approach (ICD-10-PCS; 2018-01-20)
PROC: 0SRC0J9 Replacement of Right Knee Joint with Synthetic Substitute, Cemented, Open Approach (ICD-10-PCS; principal; 2018-01-20 06:45)
DX: M17.11 Unilateral primary osteoarthritis, right knee (principal); I10 Essential (primary) hypertension; G62.9 Polyneuropathy, unspecified; G89.18 Other acute postprocedural pain; R34 Anuria and oliguria; G89.29 Other chronic pain; E11.9 Type 2 diabetes mellitus without complications; K21.9 Gastro-esophageal reflux disease without esophagitis; Z79.899 Other long term (current) drug therapy; Z87.11 Personal history of peptic ulcer disease; Z79.891 Long term (current) use of opiate analgesic; Z86.73 Personal history of transient ischemic attack (TIA), and cerebral infarction without residual deficits
CPT/HCPCS: 01402; 36415; 64447; 76942; 80048; 85025; 97110; 97116; 97162; 97166; C1713; C1776; G8978; G8979; G8987; G8989; J0690; J0735; J1100; J1885; J2250; J2274; J2405; J2704; J2765; J3010; J7030; J7120